=== PATIENT | female | born 1950 | race Caucasian/White ===

== ENCOUNTER → 2021-08-16 | Outpatient (CLI) | payer MEDICARE, OTHER ==
[~2021-08-16] MED LIST: INDOCIN25 MG/5 ML PO; LASIX40 MG PO; NORCO 5-325 TA1 EACH PO; PERCOCET 5/325 T1 EA PO; PREDNISONE20 MG PO
== END ==
LOC: EXRD 09:14
DX: M19.90 Unspecified osteoarthritis, unspecified site (principal); E11.59 Type 2 diabetes mellitus with other circulatory complications; I25.10 Atherosclerotic heart disease of native coronary artery without angina pectoris; I10 Essential (primary) hypertension; E03.9 Hypothyroidism, unspecified; K21.9 Gastro-esophageal reflux disease without esophagitis; M17.0 Bilateral primary osteoarthritis of knee; M19.011 Primary osteoarthritis, right shoulder; M19.012 Primary osteoarthritis, left shoulder; Z03.818 Encounter for observation for suspected exposure to other biological agents ruled out
CPT/HCPCS: 73030; 73564

== ENCOUNTER → 2022-01-25 | Outpatient (CLI) | payer MEDICARE, OTHER | LOC: KOH-I 09:56 | DX: Z03.818 Encounter for observation for suspected exposure to other biological agents ruled out (principal); J20.9 Acute bronchitis, unspecified | CPT/HCPCS: 71046 ==